=== PATIENT | male | born 1955 | race Caucasian/White ===

== ENCOUNTER → 2024-09-07 | Outpatient (CLI) | payer OTHER, MEDICARE, SELFPAY ==
[2024-09-07 13:08] LABS: Basophils % (Auto) 0 % (0-2.5); Eosinophils # (Auto) 0.3 Thou/mm3 (0.0-0.5); Eosinophils % (Auto) 3 % (0-10); Hematocrit 41.2 % (41.0-53.0); Hemoglobin 13.2 g/dL (13.5-16.0); Immature Granulocytes % (Auto) 0 % (0-0); Immature Granulocytes Auto 0.04 Thou/mm3 (0.00-0.00); Lymphocytes % (Auto) 20 % (10-50); Mean Corpuscular Volume 84 fL (80-100); Monocytes # (Auto) 0.7 Thou/mm3 (0.0-0.8); Monocytes % (Auto) 8 % (0-12); Neutrophils # (Auto) 6.8 Thou/mm3 (1.8-7.7); Neutrophils % (Auto) 69 % (37-80); Nucleated Red Blood Cell % 0 /100 WBC (0); Platelet Count 192 Thou/mm3 (140-440); RDW Standard Deviation 43.8 fL (35.1-43.9); Red Blood Count 4.89 Miln/mm3 (4.50-5.90); White Blood Count 9.9 Thou/mm3 (3.8-10.6)
[2024-09-07 13:23] LABS: Glucose Estimated Average 301 mg/dL (80-131); Hemoglobin A1C 12.1 % Hgb (4.8-6.0)
[2024-09-07 13:30] LABS: Alanine Aminotransferase 19 U/L (10-49); Albumin, Serum 4.1 gm/dL (3.4-4.8); Albumin/Globulin Ratio 1.4 (1.2-2.2); Alkaline Phosphatase 101 U/L (46-116); Anion Gap 9 (7-16); Aspartate Amino Transferase 18 U/L (0-34); BUN/Creatinine Ratio 13 Ratio (12-20); Bilirubin,Total 0.6 mg/dL (0.3-1.2); Blood Urea Nitrogen 13 mg/dL (9-23); Calcium 9.1 mg/dL (8.3-10.6); Calcium (Corrected) 9.1 mg/dL (8.5-10.1); Carbon Dioxide 24.3 mMol/L (20.0-31.0); Cardiac Risk Estimate 4.7 RATIO (4.0-6.7); Chloride 105 mMol/L (98-107); Cholesterol 205 mg/dL (132-200); Globulin 2.9 gm/dL (2.3-3.5); Glucose 155 mg/dL (74-106); HDL Cholesterol 44 mg/dL (40-60); LDL Cholesterol,Calculated 126 mg/dL (0-130); Osmolality,Calculated 278 (275-295); Potassium 4.2 mMol/L (3.4-5.1); Sodium 138 mMol/L (136-145); Triglycerides 177 mg/dL (30-150); eGFR > 60 See Note
[2024-09-07 14:37] LABS: Creatinine MALB Rnd Ur 54 mg/dL (30-125); Microalbumin Creat Ratio 56 mg/gCrea (<30); Microalbumin, Random Urine 30 mg/L (0-300)
== END | disposition home or self-care (01) ==
LOC: COPL 12:42
PROVIDERS: PCP Family Medicine; Referring Provider Family Medicine; Visit Provider Family Medicine
DX: E11.65 Type 2 diabetes mellitus with hyperglycemia (principal)
CPT/HCPCS: 36415; 80053; 80061; 82043; 82570; 83036; 85025

== ENCOUNTER → 2024-09-12 | Outpatient (CLI) | payer OTHER, MEDICARE, SELFPAY ==
[2024-09-17 07:17] LABS: Fecal Globin Result NOT DETECTED (NOT DETECTED)
== END | disposition home or self-care (01) ==
LOC: SLDO 13:15
PROVIDERS: PCP Family Medicine; Referring Provider Family Medicine; Visit Provider Family Medicine
DX: Z12.11 Encounter for screening for malignant neoplasm of colon (principal)
CPT/HCPCS: 82274; G0328

== ENCOUNTER → 2025-02-05 | Outpatient (CLI) | payer OTHER, MEDICARE, SELFPAY ==
[2025-02-05 16:04] LABS: Basophils # (Auto) 0.0 Thou/mm3 (0.0-0.2); Basophils % (Auto) 0 % (0-2.5); Eosinophils # (Auto) 0.3 Thou/mm3 (0.0-0.5); Eosinophils % (Auto) 3 % (0-10); Hematocrit 38.4 % (41.0-53.0); Hemoglobin 12.1 g/dL (13.5-16.0); Immature Granulocytes Auto 0.02 Thou/mm3 (0.00-0.00); Lymphocytes # (Auto) 2.1 Thou/mm3 (1.0-4.8); Lymphocytes % (Auto) 23 % (10-50); Mean Corpuscular HGB Conc 31.5 g/dl (31.0-37.0); Mean Corpuscular Hemoglobin 26.9 pg (25.0-35.0); Mean Corpuscular Volume 85 fL (80-100); Monocytes # (Auto) 0.7 Thou/mm3 (0.0-0.8); Monocytes % (Auto) 7 % (0-12); Neutrophils # (Auto) 6.0 Thou/mm3 (1.8-7.7); Neutrophils % (Auto) 66 % (37-80); Nucleated Red Blood Cell # 0.00 Thou/mm3 (0.00-0.00); Nucleated Red Blood Cell % 0 /100 WBC (0); Platelet Count 218 Thou/mm3 (140-440); RDW Standard Deviation 45.1 fL (35.1-43.9); Red Blood Count 4.50 Miln/mm3 (4.50-5.90); White Blood Count 9.1 Thou/mm3 (3.8-10.6)
[2025-02-05 16:16] LABS: Glucose Estimated Average 180 mg/dL (80-131); Hemoglobin A1C 7.9 % Hgb (4.8-6.0)
[2025-02-05 16:19] LABS: Creatinine MALB Rnd Ur 102 mg/dL (30-125); Microalbumin Creat Ratio 49 mg/gCrea (<30); Microalbumin, Random Urine 50 mg/L (0-300)
[2025-02-05 16:29] LABS: Alanine Aminotransferase 8 U/L (10-49); Albumin, Serum 4.3 gm/dL (3.4-4.8); Albumin/Globulin Ratio 1.6 (1.2-2.2); Alkaline Phosphatase 79 U/L (46-116); Anion Gap 11 (7-16); Aspartate Amino Transferase 16 U/L (0-34); BUN/Creatinine Ratio 12 Ratio (12-20); Bilirubin,Total 0.5 mg/dL (0.3-1.2); Blood Urea Nitrogen 11 mg/dL (9-23); Calcium 9.1 mg/dL (8.3-10.6); Calcium (Corrected) 9.1 mg/dL (8.5-10.1); Carbon Dioxide 23.9 mMol/L (20.0-31.0); Chloride 107 mMol/L (98-107); Creatinine (Component) 0.9 mg/dL (0.6-1.3); Globulin 2.7 gm/dL (2.3-3.5); Glucose 94 mg/dL (74-106); Osmolality,Calculated 282 (275-295); Potassium 3.9 mMol/L (3.4-5.1); Sodium 142 mMol/L (136-145); Total Protein 7.0 gm/dL (5.7-8.2); eGFR > 60 See Note
== END | disposition home or self-care (01) ==
LOC: COPL 14:52
PROVIDERS: PCP Internal Medicine; Referring Provider Internal Medicine; Visit Provider Internal Medicine
DX: E11.65 Type 2 diabetes mellitus with hyperglycemia (principal); I10 Essential (primary) hypertension; E78.5 Hyperlipidemia, unspecified
CPT/HCPCS: 36415; 80053; 82043; 82570; 83036; 85025

== ENCOUNTER → 2025-02-06 | Outpatient (CLI) | payer OTHER, MEDICARE, SELFPAY ==
[2025-02-06 15:35] LABS: Cardiac Risk Estimate 2.8 RATIO (4.0-6.7); Cholesterol 118 mg/dL (132-200); HDL Cholesterol 42 mg/dL (40-60); LDL Cholesterol,Calculated 62 mg/dL (0-130); Triglycerides 68 mg/dL (30-150)
== END | disposition home or self-care (01) ==
LOC: COPL 14:34
PROVIDERS: PCP Internal Medicine; Referring Provider Internal Medicine; Visit Provider Internal Medicine
DX: E11.65 Type 2 diabetes mellitus with hyperglycemia (principal); E78.5 Hyperlipidemia, unspecified; I10 Essential (primary) hypertension
CPT/HCPCS: 36415; 80061

== ENCOUNTER → 2025-05-01 | Outpatient (CLI) | payer BC, MEDICARE, SELFPAY ==
[2025-05-01 13:21] LABS: Misc Send Out* See Sep Rpt
[2025-05-01 14:00] LABS: Basophils # (Auto) 0.1 Thou/mm3 (0.0-0.2); Basophils % (Auto) 1 % (0-2.5); Eosinophils # (Auto) 0.7 Thou/mm3 (0.0-0.5); Eosinophils % (Auto) 7 % (0-10); Hematocrit 44.2 % (41.0-53.0); Hemoglobin 14.0 g/dL (13.5-16.0); Immature Granulocytes Auto 0.03 Thou/mm3 (0.00-0.00); Lymphocytes # (Auto) 1.7 Thou/mm3 (1.0-4.8); Lymphocytes % (Auto) 17 % (10-50); Mean Corpuscular HGB Conc 31.7 g/dl (31.0-37.0); Mean Corpuscular Hemoglobin 26.6 pg (25.0-35.0); Mean Corpuscular Volume 84 fL (80-100); Monocytes # (Auto) 0.7 Thou/mm3 (0.0-0.8); Monocytes % (Auto) 7 % (0-12); Neutrophils # (Auto) 7.1 Thou/mm3 (1.8-7.7); Neutrophils % (Auto) 69 % (37-80); Nucleated Red Blood Cell # 0.00 Thou/mm3 (0.00-0.00); Nucleated Red Blood Cell % 0 /100 WBC (0); Platelet Count 228 Thou/mm3 (140-440); RDW Standard Deviation 45.0 fL (35.1-43.9); Red Blood Count 5.27 Miln/mm3 (4.50-5.90); White Blood Count 10.3 Thou/mm3 (3.8-10.6)
[2025-05-01 14:16] LABS: Alanine Aminotransferase 9 U/L (10-49); Albumin, Serum 4.7 gm/dL (3.4-4.8); Albumin/Globulin Ratio 1.8 (1.2-2.2); Alkaline Phosphatase 84 U/L (46-116); Anion Gap 11 (7-16); Aspartate Amino Transferase 16 U/L (0-34); BUN/Creatinine Ratio 9 Ratio (12-20); Bilirubin,Total 0.7 mg/dL (0.3-1.2); Blood Urea Nitrogen 13 mg/dL (9-23); Calcium 9.3 mg/dL (8.3-10.6); Calcium (Corrected) 9.3 mg/dL (8.5-10.1); Carbon Dioxide 22.8 mMol/L (20.0-31.0); Chloride 107 mMol/L (98-107); Creatinine (Component) 1.4 mg/dL (0.6-1.3); Globulin 2.6 gm/dL (2.3-3.5); Glucose 133 mg/dL (74-106); Osmolality,Calculated 283 (275-295); Potassium 4.6 mMol/L (3.4-5.1); Sodium 141 mMol/L (136-145); Total Protein 7.3 gm/dL (5.7-8.2); eGFR 54 See Note
== END | disposition home or self-care (01) ==
LOC: COPL 13:06
PROVIDERS: PCP Internal Medicine; Referring Provider Internal Medicine; Visit Provider Internal Medicine
DX: R21 Rash and other nonspecific skin eruption (principal); E11.65 Type 2 diabetes mellitus with hyperglycemia; I10 Essential (primary) hypertension
CPT/HCPCS: 36415; 80053; 85025

== ENCOUNTER 2025-05-15 17:21 | Emergency (ER) | payer BC, MEDICARE, SELFPAY ==
[2025-05-15 17:22] VITALS: BMI 32.5
[2025-05-15 18:12] VITALS: BP 148/84; PULSE 80; RESP 18; TEMP 37.1; O2SAT 98
--- NOTE | 2025-05-15 18:25 | PD.EDSKIN ---
ED Skin Abcess FB-RME/HPI General Chief complaint: Skin/Abscess/Foreign Body Stated complaint: GENERALIZED BODY BLISTERS X1 MONTH Time Seen by Provider: 05/15/25 18:40 Arrival date/time: 05/15/25 17:21 RME / HPI RME / HPI narrative: CC: skin blisters Patient is a 69 year old male with a past medical history of HTN, HLD, diabetes mellitus type 2 non-insulin dependent who presented to the emergency room with chief complain of blisters in his upper extremity, left side of his torso, and lower extremity towards the dorsal side of both feet. Paitnet stated blisters started occurring about 1 month ago and patient followed up with his primary doctor who referred him to a dairy bar manager physician and pending biopsy result on 05/16/2025. Patient stated blisters are non painful and not pruritic. Blisters sometimes come off easily after rubbing them and leave erythematous leidy at the site. Some erythemous well circumcised areas at the lower extremities. Patient denied fevers at home or chills. Denied any hiking or sick contacts. Denied new medication. Shortly after blisters, patient was placed on Bactrim which was discontinued because nausea caused by medication. Currenlty taking cephalexin prropylaxtically and cream Triamcrinoome. ordered: HIV and Hepatitis (please follow up w/ primary care provider) Related Data Home Medications ?Medication ?Instructions ?Recorded ?Confirmed cilostazol 100 mg tablet 100 mg DAILY 01/31/20 02/01/20 gabapentin 100 mg capsule 100 mg PO TID 01/31/20 02/01/20 lovastatin 40 mg tablet 40 mg PO QPM 01/31/20 02/01/20 Previous Rx's ?Medication ?Instructions ?Recorded aspirin 81 mg tablet,delayed 81 mg PO QDAY #30 tabs 02/01/20 release (Adult Aspirin Regimen) Allergies Allergy/AdvReac Type Severity Reaction Status Date / Time No Known Allergies Allergy Verified 05/15/25 17:25 Review of Systems Review of Systems Narrative Review of Systems: General appearance: NO weight change, NO fatigue, NO weakness, NO fever, NO chills, NO night sweats, No cough Skin: Blisters Yes, No itching, Yes superficial sores-at site of blisters pop, NO moles HEENT: NO Trauma, NO nausea, NO vomiting, NO visual changes, NO blurry vision, NO double vision, NO tinnitus, NO vertigo, NO ear discharge, NO rhinorrhea, NO stuffiness, NO sneezing, NO allergy, NO epistaxis. NO Hoarseness, NO sore throat, NO swollen neck. Cardiac: NO Palpitations, NO dyspnea on exertion, NO orthopnea, NO paroxysmal nocturnal dyspnea, NO edema Respiratory: NO Shortness of Breath, NO Wheezing, NO Cough, NO Sputum, NO hemoptysis GI:NO appetite, NO nausea, NO vomiting, NO dysphagia, NO changes in bowel frequency, NO stool color, NO diarrhea, NO constipation, NO hemetemesis, NO hemorrhoids, NO melena, NO hematechezia, NO abdominal pain, NO jaundice Renal: NO frequency, NO hesitancy, NO urgency, NO hematuria, NO nocturia, NO incontinence MSK: NO muscle weakness, NO gout, NO arthritis, NO muscle stiffness Neuro: NO headaches, NO tremors, NO weakness, NO paralysis, NO seizures, NO loss of consciousness, NO numbness. Hem: NO anemia, NO easy bruising/bleeding, NO petechiae, NO purpura Endo: NO heat/cold intolerance, NO excessive sweating, NO polyuria, NO polydipsia, NO polyphagia, NO thyroid problems, NO diabetes Pysch: NO mood, NO anxiety, NO depression ED Exam Narrative Physical exam: General Appearance: Alert & Oriented X3, well-nourished male who is lying in bed in no acute distress, fluid filled blisters that are about 3 cm in diameter that are most prominent at upper extremity, mild pin point scaling, and well circular erythematous rash on mid thighs bilaterally lower extremity HEENT: Skull symmetrical and atraumatic. Conjunctivae pin and moist. Pupils equal, round, reactive to light and accommodation (PERRL). External ear without lesion or discharge. Straight, nares patient, mucosa pink, no discharge. Cardio: Normal Rate and Rhythm with S1 and S2 heart sounds. No murmurs or extra heart sounds auscultated. No bruits on carotid auscultation. No peripheral edema or cyanosis. Lungs: Symmetric with good expansion. Chest and back non-tender. Breath sounds vesicular without crackles, wheezing or rhonchi Abdomen: Non-tender, Non-distended, Normal Reactive Bowel Sounds Neuro: Alert, cooperative, oriented to person, place, and time. Speech clear. CN grossly intact. Upper motor strength 5/5 and Lower motor strength 5/5. Sensation intact. Course Course Course Narrative: HIV and Hepatitis Quality Measures none Orders Category Date Time Status HIV (1&2) Antibody Rapid Stat Lab 05/15/25 18:52 Received Hepatitis Acute Panel Stat Lab 05/15/25 18:52 Received Vital Signs Vital signs: Vital Signs Temperature 98.7 F 05/15/25 18:12 Pulse Rate 80 05/15/25 18:12 Respiratory Rate 18 05/15/25 18:12 Blood Pressure 148/84 H 05/15/25 18:12 Pulse Oximetry (%) 98 05/15/25 18:12 Oxygen Delivery Method Room Air 05/15/25 18:12 Skin / Abscess / Foreign Body Patient data External records reviewed:: [facility] previous records Clinical information provided by:: patient Social determinants that could affect healthcare access:: none Patient has the following chronic illnesses:: HTN HLD Diabetes Mellitus Type 2 non-insulin depdent How is presenting disease/condition affected by chronic disease/condition?: uneffected by (chronic disease ) Evaluation data The following diagnostics were reviewed and interpreted by me:: lab results (HIV and Hep ) and other (specify) (physical exam ) Lab and/or radiology exams considered but not ordered:: none Interpretation Summary: Patient is a 69-year-old male with a past medical history of hypertension hyperlipidemia diabetes mellitus type 2 [id number] who presented to the emergency room with a chief complaint of blisters located in the upper extremity and lower extremity specifically noted at the dorsum of his foot upper extremity bilaterally. Blisters are not on pruritic. No pyrexia or fluid noted to be draining. No fevers. Patient is following up with dermatology and is following the biopsy results tomorrow 05/16/2025. HIV and hepatitis ordered, follow up with dairy bar manager on 05/16/2025. - The patient's plan was discussed with attending Dr. Annette Funes MD PGY2 Internal Medicine Medications / Prescriptions Medications or Prescriptions considered but not ordered:: None Medication administrations:: None Consultations Consultation(s) initiated? (list below): No Diagnosis Skin/Abscess Differential Diagnosis: eczema and other (bullous pemphigoid vs blisters ) Most likely diagnosis given after review of the tests above:: Most likely diagnosis of blisters as patient will be following up with deramtology with biopsy result. Admission Indicated Admission indicated?: not indicated Admission Request Was there a request for admission?: No Disposition Plan Disposition Plan: Discharge Discharge Attestation Discharge Attestation: The patient and all family members were given an opportunity to ask questions and understood the discharge instructions. Discharge instructions specifically effects, indications for sooner follow up or return to the emergency department, and the expected course of current diagnosis. Patient condition: Stable Discharge Plan Plan Patient Disposition: HOME (Self Care) Patient condition on transfer: Stable Health Concerns: Instructions: -Please follow up with your dairy bar manager with biopsy results, tomorrow, 05/16/2025. -Please follow up with your primary care physician with labs draw at the emergency room -Please follow up with your primary care provider within one week of discharge -If your symptoms worsen,please seek immediate medical attention and return to your nearest emergency room -If you do not have a primary care provider, you may follow up at the [facility] at [address], [place] [address], Prescriptions/Referrals Prescriptions/Med Rec: Continued gabapentin 100 mg Capsule 100 mg PO TID lovastatin 40 mg Tablet 40 mg PO QPM cilostazol 100 mg Tablet 100 mg DAILY aspirin [Adult Aspirin Regimen] 81 mg tablet,delayed release (DR/EC) 81 mg PO QDAY Qty: 30 0RF Discontinued triamterene-hydrochlorothiazid 37.5-25 mg Capsule 1 cap PO QAM Rx Instructions: 37.5-25 Januvia 100 mg Tablet 100 mg PO QDAY Ozempic 0.25 mg or 0.5 mg(2 mg/1.5 mL) Pen Injector 0.25 mg SUBCUT QWEEK Rx Instructions: TUESDAY. glyburide-metformin 5-500 mg tablet 2 tab PO BID Patient Comments: TK 2 TS PO BID WC Problem List Clinical Impression: Blisters of multiple sites Impression comment: Please follow up with Dermatology Patient/Caregiver Discharge Instructions Print Language: Cymraes Stand Alone Forms: Jaylene Award Info., Patient Portal Info Letter
[2025-05-15 21:25] LABS: HIV (1&2) Antibody Rapid Non-Reactive
[2025-05-15 23:48] LABS: Hepatitis A Antibody IgM Non Reactive (Non React); Hepatitis B Core Antibody IgM Non Reactive (Non React); Hepatitis B Surface Antigen Non Reactive (Non React); Hepatitis C Antibody Non Reactive (Non React)
== END 2025-05-15 19:01 | disposition home or self-care (01) ==
LOC: SERX 19:01
PROVIDERS: Emergency Provider Emergency Medicine; PCP Internal Medicine
DX: S20.322A Blister (nonthermal) of left front wall of thorax, initial encounter (principal); X58.XXXA Exposure to other specified factors, initial encounter
CPT/HCPCS: 36415; 80074; 86703; 99282